=== PATIENT | female | born 1935 ===

== ENCOUNTER → 2018-12-19 | Outpatient (CLI) | payer MEDICARE ==
[~2018-12-19] MED LIST: AMLO-127 PO; BENA40TA53 PO; DIAZ-308 PO; METO50TA19 PO
== END ==
LOC: LAB 13:56
PROVIDERS: ATTEND Physician Assistant
DX: E04.1 Nontoxic single thyroid nodule (principal)
CPT/HCPCS: 36415; 84439; 84443